=== PATIENT | female | born 1950 | race Caucasian/White ===

== ENCOUNTER 2022-03-19 08:30 | Emergency (ER) | payer OTHER ==
--- OUTSIDE RECORDS SUMMARY | 2022-03-19 08:35 | XMS REPORT | Continuity of Care Document ---
:1950 Author Organization [facility] t Address [address] [place] [address] Care Team Providers Name Role Phone Sirena CUADRA Primary Care Physician Unavailable GC_MADINAC_Black_D Attending Clinician Unavailable Brannon BRUNO Attending Clinician Unavailable Vijay BRUNO Attending Clinician Unavailable Ruben COLLINS Attending Clinician BETH DELGADILLO Attending Clinician Unavailable Gloria ROBLERO Attending Clinician GLORIA Attending Clinician Unavailable Eleno Baca MD Attending Clinician 3 Attending Clinician Unavailable Field-Hrt Attending Clinician Unavailable GC_MADINAC_Black_D Admitting Clinician Unavailable Payers Payer Name Policy Type Policy Number Effective Date Expiration Date Claudette paulina AETNA (MEDICARE [id number] 2021 REPLACEMENT PPO) 00:00:00 MEDICARE PLAN PPO - [id number] AETNA AETNA MEDICARE HMO [id number] 2021 POS PPO 00:00:00 Problems Condition Condition Condition Status Onset Resolution Last Treating Co mments Source Name Details Category Date Date Treatment Clinician Date 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 3-20 College age-relate age-relate 00:00: of d d 00 Medicin cataract, cataract, e both eyes both eyes 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 3-20 College age-relate age-relate 00:00: of d d 00 Medicin cataract, cataract, e both eyes both eyes At high At high Disease Active [facility] risk for risk for 3-20 Colleg e open angle open angle 00:00: of glaucoma glaucoma 00 Medici n of both of both e eyes eyes 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 3-20 Co llege , left , left 00:00: of 00 Medicin e 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 1-06 Co llege 00:00: of 00 Medicin e Myopia Myopia Disease Active [facility] with with 06 College astigmatis astigmatis 00:00: of m and m and 00 Medicin presbyopia presbyopia e 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[facility] incipient incipient 06-03 [facility] cataract cataract 00:00: of of both of both 00 Medicin eyes eyes e Glaucoma Glaucoma Disease Active [facility] r suspect suspect 9-11 College 00:00: of 00 Medicin e Glaucoma Glaucoma Disease Active [facility] r suspect suspect 9-11 College 00:00: of 00 Medicin e Macular Macular Disease Active [facility] puckering puckering 7-29 Sarah ege of retina of retina 00:00: of 00 Medicin e Glaucoma Glaucoma Disease Active [facility] r suspect of suspect of 7-29 Co llege both eyes both eyes 00:00: of 00 Medicin e Vitreous Vitreous Disease Active [facility] r degenerati degenerati 7-29 Co llege on on 00:00: of 00 Medicin e Hypothyroi Hypothyroi Disease Active [facility] dism dism 7-29 College 00:00: of 00 Medicin e Meningioma Meningioma Disease Active Overview : [facility] Colleg e planum of sphenoida Medicin le e meningiom a Meningioma Meningioma Disease Active Overview : [facility] left Colleg e planum of sphenoida Medicin le e meningiom a Left Left Diagnosis Active Common sciatic sciatic Spirit nerve pain nerve pain - [facility] Pain in Pain in Diagnosis Active Commo n joint of joint of Spirit left knee left knee - I [facility] Strain of Strain of Diagnosis Active C ommon other other Spirit muscle(s) muscle(s) - [facility] I and and St tendon(s) tendon(s) Luke s at lower at lower Medica l leg level, leg level, Ce nter left leg, left leg, initial initial encounter encounter Allergies, Adverse Reactions, Alerts Allergy Allergy Status Severity Reaction(s) Onset Inactive Treating Comm ents Source Name Type Date Date Clinician CODEINE Allergy Active N\T\V [facility] [place] Codeine Propensi Active Nausea And [facility] j[facility] ty to Vomiting 04-25 [facility] adverse 00:00: of reaction 00 Medicin s to e drug Social History Social Habit Start Date Stop Date Quantity Comments Source Exposure to Not sure [facility] Colleg SARS-CoV-2 of Medicine (event) Sex Assigned At [facility] [employer] of [employer] Alcohol intake 2019-11-08 2019-11-08 Current [facility] Col lege 00:00:00 00:00:00 non-drinker of of Medicin e alcohol (finding) Tobacco use and 2019-11-08 2019-11-08 Never used [facility] [employer] l[employer] exposure 00:00:00 00:00:00 of Medicine Smoking Status Start Date Stop Date Source Never smoker [facility] o f Medicine Medications Ordered Filled Start Stop Current Ordering Indication Dosage Frequency Signature Comments Components Source Medication Medication Date Date Medication? Clinician (SIG) Name Name METOPROLOL 2019-09 Yes Take by [facility] SUCCINATE 0-02 mouth. [facility] OR 18:21: of 41 Medicin e fluticasone 2019-09 Yes 1{spray 1 [place] by [facility] (FLONASE) 0-02 } Each [facility] 50 MCG/ACT 18:21: Nostril of nasal spray 41 route Medicin daily. e estradiol 2019-09 Yes estradiol [facility] (ESTRACE) 1 0-02 1 mg [facility] MG tablet 18:21: tablet of 41 TAKE 1 Medicin TABLET BY e MOUTH EVERY DAY conjugated 2019-09 Yes Premarin [facility] estrogens 0-02 0.625 [facility] (PREMARIN) 18:20: mg/gram of vaginal 41 vaginal Medicin cream cream e INSERT VAGINALLY 0.5 GRAM pv twice a week nystatin 2019-09 Yes nystatin [facility] (MYCOSTATIN 0-02 100,000 Colle ge ) cream 18:20: unit/gram of 41 topical Medicin cream e APPLY TO THE AFFECTED AREA(S) BY TOPICAL ROUTE 2 TIMES PER DAY liothyronin 2019-09 Yes liothyroni [facility] (CYTOMEL) 0-02 ne 5 mcg Sarah ege 5 MCG 18:19: tablet of tablet 56 TAKE 1 Medicin TABLET BY e MOUTH EVERY DAY liothyronin 2019-09 2020- No [id number] 10ug Take 10 [facility] (CYTOMEL) 0-02 10-02 mcg by Colle ge 25 MCG 18:19: 00:00 mouth of tablet 25 :00 daily. Medicin e ipratropium 2019-09 Yes ipratropiu [facility] (ATROVENT) 0-02 m bromide Sarah ege 0.06 % 18:19: 42 mcg of nasal spray 24 (0.06 %) Medi lanre nasal e spray triamcinolo Yes [facility] ne 06-26 [facility] (KENALOG) 00:00: of 0.1 % cream 00 Medicin e pantoprazol Yes TAKE 1 [facility] e 8-25 TABLET BY [facility] (PROTONIX) 00:00: MOUTH of 40 MG 00 TWICE A Medicin tablet DAY e fluticasone Yes 1{spray 1 [place] by [facility] (FLONASE) 2-11 } Each [facility] 50 MCG/ACT 19:41: Nostril of nasal spray 55 route Medicin daily. e liothyronin Yes [id number] 10ug Take 10 [facility] (CYTOMEL) 2-11 mcg by Colleg e 25 MCG 19:41: mouth of tablet 55 daily. Medicin e METOPROLOL Yes Take by Frankewing james SUCCINATE 2-11 mouth. [facility] OR 19:41: of 55 Medicin e liothyronin Yes [id number] 10ug Take 10 [facility] (CYTOMEL) 9-25 mcg by Colleg e 25 MCG 15:31: mouth of tablet 51 daily. Medicin e METOPROLOL Yes Take by Frankewing james SUCCINATE 9-25 mouth. [facility] OR 15:31: of 51 Medicin e fluticasone 2018- Yes 1{spray 1 [place] by [facility] (FLONASE) 9-25 } Each [facility] 50 MCG/ACT 15:31: Nostril of nasal spray 51 route Medicin daily. e liothyronin Yes [id number] 10ug Take 10 [facility] (CYTOMEL) 9-25 mcg by Colleg e 25 MCG 15:31: mouth of tablet 51 daily. Medicin e METOPROLOL Yes Take by [facility]kewing james SUCCINATE 06-22 mouth. College ER OR 15:31: of 51 Medicin e fluticasone Yes 1{spray 1 [place] by [facility] (FLONASE) 06-22 } Each College 50 MCG/ACT 15:31: Nostril of nasal spray 51 route Medicin daily. e estradiol Yes [facility] (ESTRACE) 1 05-29 College MG tablet 00:00: of 00 Medicin e estradiol 0 Yes [facility] (ESTRACE) 1 05-29 College MG tablet 00:00: of 00 Medicin e estradiol Yes [facility] (ESTRACE) 1 05-29 College MG tablet 00:00: of 00 Medicin e estradiol 2016-0 2020- No [facility] (ESTRACE) 1 05-29-02 College MG tablet 00:00: 00:00 of 00 :00 Medicin e atorvastati 2015-0 Yes Reported [facility] (LIPITOR) 6-10 on College 10 MG 00:00: 10/03/2016 of tablet 00 Medicin e atorvastati 2016-0 Yes Reported [facility] (LIPITOR) 6-10 on College 10 MG 00:00: 10/03/2016 of tablet 00 Medicin e atorvastati 2016-0 Yes Reported [facility] (LIPITOR) 6-10 on College 10 MG 00:00: 10/03/2016 of tablet 00 Medicin e atorvastati 2016-0 Yes Reported [facility] (LIPITOR) 6-10 on College 10 MG 00:00: 10/03/2016 of tablet 00 Medicin e levothyroxi 2015-0 Yes [facility] 5-03 [facility] (SYNTHROID) 00:00: of 88 MCG 00 Medicin tablet e levothyroxi 2015-0 Yes [facility] 5- [facility] (SYNTHROID) 00:00: of 88 MCG 00 Medicin tablet e levothyroxi 2015-0 Yes [facility] 5-03 [facility] (SYNTHROID) 00:00: of 88 MCG 00 Medicin tablet e levothyroxi 0 Yes [facility] 5-03 [facility] (SYNTHROID) 00:00: of 88 MCG 00 Medicin tablet e Immunizations Ordered Immunization Filled Immunization Date Status Commen ts Source Name Name Influenza (whole) 2016-06-12 Completed [facility] 00:00:00 of Medicine Influenza (whole) 2016-06-12 Completed [facility] 00:00:00 of Medicine Influenza (whole) 2016-06-12 Completed [facility] 00:00:00 of Medicine Influenza (whole) 2016-06-12 Completed [facility] 00:00:00 of Medicine Influenza (whole) 2013-06-12 Completed [facility] 00:00:00 of Medicine Influenza (whole) 2013-06-12 Completed [facility] 00:00:00 of Medicine Influenza (whole) 2013-06-12 Completed [facility] 00:00:00 of Medicine Influenza (whole) 2013-06-12 Completed [facility] 00:00:00 of Medicine Vital Signs Vital Name Observation Time Observation Value Comments Source Systolic blood 2019-11-08 19:40:00 133 mm[Hg] [facility] Diastolic blood 2019-11-08 19:40:00 80 mm[Hg] [facility] Heart rate 2019-11-08 19:40:00 70 /min [facility] Body temperature 2019-11-08 19:40:00 36.5 Yun [facility] Respiratory rate 2019-11-08 19:40:00 16 /min [facility] Body height 2019-11-08 19:40:00 168.9 cm [facility] Body weight 2019-11-08 19:40:00 85.73 kg [facility] BMI 2019-11-08 19:40:00 30.05 kg/m2 [facility] Oxygen saturation in 2019-11-08 19:40:00 95 /min [facility] Arterial blood by [facility] Pulse oximetry Procedures Procedure Date / Time Performed Performing Clinician [facility] OCT, OPTIC NERVE - OU 2019-06-22 16:25:[address] [facility] BOTH EYES [facility] MCCLELLAND VISUAL FIELD 2019-06-22 15:24:[address] [facility] OU - BOTH EYES Medicine Plan of Care Planned Activity Planned Date Details Comments Source Future Scheduled Test TETANUS SHOT (ADULT) [facility] [code = TETANUS SHOT Medicin e (ADULT)] Future Scheduled Test BMI FOLLOW UP PLAN [facility] [code = BMI FOLLOW UP Medici ne PLAN] Future Scheduled Test HEPATITIS C SCREENING [facility] [code = HEPATITIS C Medicine SCREENING] Future Scheduled Test ZOSTER VACCINE (1 of 2) [facility] [code = ZOSTER VACCINE Medic ine (1 of 2)] Future Scheduled Test OSTEOPOROSIS SCREENING [facility] [code = OSTEOPOROSIS Medicin e SCREENING] Future Scheduled Test PNEUMOVAX >=65 (PPSV23) [facility] [code = PNEUMOVAX >=65 Medic ine (PPSV23)] Future Scheduled Test MEDICARE AWV (Initial) [facility] [code = MEDICARE AWV Medicin e (Initial)] Future Scheduled Test MAMMOGRAM ANNUAL [code [facility] = MAMMOGRAM ANNUAL] Medicine Future Scheduled Test FLU VACCINE > 6 MONTHS [facility] [code = FLU VACCINE > 6 Medi cine MONTHS] Future Scheduled Test FALL SCREEN [code = [facility] FALL SCREEN] Medicine Future Scheduled Test COLON CANCER SCREENING: [facility] COLONOSCOPY [code = Medicine COLON CANCER SCREENING: COLONOSCOPY] Future Scheduled Test MEDICARE AWV [code = [employer] MEDICARE AWV] Medicine Future Scheduled Test TETANUS SHOT (ADULT) [facility] [code = TETANUS SHOT Medicin e (ADULT)] Future Scheduled Test BMI FOLLOW UP PLAN [facility] [code = BMI FOLLOW UP Medici ne PLAN] Future Scheduled Test HEPATITIS C SCREENING [facility] [code = HEPATITIS C Medicine SCREENING] Future Scheduled Test FALL SCREEN [code = [facility] FALL SCREEN] Medicine Future Scheduled Test PNEUMOVAX >=65 (PPSV23) [facility] [code = PNEUMOVAX >=65 Medic ine (PPSV23)] Future Scheduled Test MAMMOGRAM ANNUAL [code [facility] = MAMMOGRAM ANNUAL] Medicine Future Scheduled Test FLU VACCINE > 6 MONTHS [facility] [code = FLU VACCINE > 6 Medi cine MONTHS] Future Scheduled Test COLON CANCER SCREENING: [facility] COLONOSCOPY [code = Medicine COLON CANCER SCREENING: COLONOSCOPY] Future Scheduled Test MEDICARE AWV [code = [employer] MEDICARE AWV] Medicine Future Scheduled Test TETANUS SHOT (ADULT) [facility] [code = TETANUS SHOT Medicin e (ADULT)] Future Scheduled Test BMI FOLLOW UP PLAN [facility] [code = BMI FOLLOW UP Medici ne PLAN] Future Scheduled Test HEPATITIS C SCREENING [facility] [code = HEPATITIS C Medicine SCREENING] Future Scheduled Test FALL SCREEN [code = [facility] FALL SCREEN] Medicine Future Scheduled Test PNEUMOVAX >=65 (PPSV23) [facility] [code = PNEUMOVAX >=65 Medic ine (PPSV23)] Future Scheduled Test MAMMOGRAM ANNUAL [code [facility] = MAMMOGRAM ANNUAL] Medicine Future Scheduled Test FLU VACCINE > 6 MONTHS [facility] [code = FLU VACCINE > 6 Medi cine MONTHS] Future Scheduled Test COLON CANCER SCREENING: [facility] COLONOSCOPY [code = Medicine COLON CANCER SCREENING: COLONOSCOPY] Future Scheduled Test TETANUS SHOT (ADULT) [facility] [code = TETANUS SHOT Medicin e (ADULT)] Future Scheduled Test BMI FOLLOW UP PLAN [facility] [code = BMI FOLLOW UP Medici ne PLAN] Future Scheduled Test HEPATITIS C SCREENING [facility] [code = HEPATITIS C Medicine SCREENING] Future Scheduled Test FALL SCREEN [code = [facility] FALL SCREEN] Medicine Future Scheduled Test OSTEOPOROSIS SCREENING [facility] [code = OSTEOPOROSIS Medicin e SCREENING] Future Scheduled Test PNEUMOVAX >=65 (PPSV23) [facility] [code = PNEUMOVAX >=65 Medic ine (PPSV23)] Future Scheduled Test PREVNAR >= 65 (PCV13) [facility] [code = PREVNAR >= 65 Medici ne (PCV13)] Future Scheduled Test MEDICARE AWV (Initial) [facility] [code = MEDICARE AWV Medicin e (Initial)] Future Scheduled Test MAMMOGRAM ANNUAL [code [facility] = MAMMOGRAM ANNUAL] Medicine Future Scheduled Test FLU VACCINE > 6 MONTHS [facility] [code = FLU VACCINE > 6 Medi cine MONTHS] Future Scheduled Test COLON CANCER SCREENING: [facility] COLONOSCOPY [code = Medicine COLON CANCER SCREENING: COLONOSCOPY] Encounters Start End Encounter Admission Attending Care Care Encounter Source Date/Time Date/Time Type Type Clinicians Facility Department ID 2021-12-26 2021-12-26 Outpatient GC_[facility]AOM[facility]_ PRIV PRIV [id number] [facility] 01:09:00 01:09:00 Black_D [id number] Medica l 2021-12-03 2021-12-03 Outpatient GC_SWHAOMC_ PRIV PRIV [id number] [facility] 02:51:00 02:51:00 Black_D [id number] Medica l 2021-11-20 2021-11-20 Outpatient CHANEL BRUNO [facility] [id number] [facility] 09:37:34 09:39:50 MARIE sadler of Medicin e 2021-11-12 2021-11-12 Outpatient MALI LUDWIG [facility] [id number] [facility] 12:22:05 23:59:00 [facility] 2021-11-05 2021-11-05 Outpatient GC_SWHAOMC_ PRIV PRIV [id number] [facility] 02:43:00 02:43:00 Black_D [id number] Medica l 2021-10-21 2021-10-21 Outpatient GC_SWHAOMC_ PRIV PRIV [id number] [facility] 03:59:00 03:59:00 Black_D [id number] Medica l 2021-10-18 2021-10-18 Outpatient GC_[facility]WHAOMC_ PRIV PRIV 505 [id number] [facility] 04:10:00 04:10:00 Black_D [id number] Medica l 2021-10-15 2021-10-15 Outpatient GC_SWHAOMC_ PRIV PRIV 505 [id number] [facility] 06:35:00 06:35:00 Black_D [id number] Medica l 2021-08-27 2021-08-27 Outpatient GC_SWHAOMC_ PRIV PRIV 505 [id number] [facility] 12:16:00 12:16:00 Black_D [id number] Medica l 2020-11-28 2020-11-28 Outpatient EL SLEAndrew [facility] [id number] [facility] 00:00:00 00:00:00 2020-11-21 2020-11-21 Outpatient MALI LUDWIG [facility] [id number] [facility] 00:00:00 00:00:00 [facility] 2020-06-29 2020-06-29 Office CHANEL Miranda [id number] [facility] 12:44:56 13:50:50 Visit Natalie AMBULATOR [id number] College Y 0.2.7.2.686 of [id number] Medi lanre 300 e 2020-05-16 2020-05-16 Outpatient ALLA SLEAndrew [facility] [id number] [facility] 00:00:00 00:00:00 2020-05-15 2020-05-15 Outpatient SLEH [facility] [id number] [facility] 00:00:00 00:00:00 [id number] 2020-05-15 2020-05-15 Outpatient ALLA DELGADILLO, [facility] [id number] [facility] 00:00:00 00:00:00 DUANE 2020-01-27 2020-01-27 Outpatient SLEH [facility] [id number] [facility] 00:00:00 00:00:00 [id number] 2019-12-28 2019-12-28 Outpatient SLEH [facility] [id number] [facility] 00:00:00 00:00:00 [id number] 2019-11-30 2019-11-30 Outpatient SLEH [facility] [id number] [facility] 00:00:00 00:00:00 [id number] 2019-11-29 2019-11-29 Outpatient SLEH [facility] [id number] [facility] 15:56:54 15:56:54 [id number] 2019-11-14 2019-11-14 Outpatient SLEH [facility] [id number] [facility] 15:55:30 15:55:30 [id number] 2019-11-08 2019-11-08 Office Brianjaneen [facility] [id number] [facility] 12:38:50 12:53:50 Visit Taurus AMBULATOR [id number] College Y [id number] of [id number] Medi lanre 300 e 2019-06-24 2019-06-24 Office CHANEL Miranda [id number] [facility] 12:26:39 14:34:14 Visit Natalie AMBULATOR [id number] College Y [id number] of [id number] Medi lanre 300 e 2019-06-22 2019-06-22 Office Andrew Baca [facility] [id number] [facility] 10:00:42 11:46:08 Visit Mathieu Cross AMBULATOR [id number] College Field[employer], Visual Y 0.2.7.2.686 of [id number] Medi lanre 300 e 2018-12-17 2018-12-17 Out[facility] [id number] Common 08:30:00 08:30:00 [facility] Results Test Description Test Time Test Comments Results Result [facility] e Comments MR, BRAIN, WITH 2021-11-12 Unlisted Reason 15:21:00 for Exam - Click Yes and [facility] Enter Reason [facility] Below->Yes CENTERName: [place], Unlisted Reason ALEXANDER ALFORD for : 1950 Exam->meningiom Sex: a, cerebral F FINAL REPORT MR, BRAIN, WITH \T\ WITHOUT CONTRAST INDICATION: Unlisted Reason for Exammeningioma, cerebral Technique: Multiplanar, multisequence MRI images of the brain were obtained before and after demonstration of intravenous contrast. COMPARISON: 11/21/2020 MRI FINDINGS:Postoperative changes from left frontotemporal craniotomy. Gliosis/and encephalomalacia is seen in the left anterior temporal lobe. Small focal areas of gliosis in the left anterior frontal lobe and left orbitofrontal gyri. Mild enhancement is seen along the left cavernous sinus and medial temporal lobe (series 901 image 10) No restricted diffusion to suggest recent ischemic insult. No abnormal susceptibility. Scattered T2/FLAIR hyperintense foci within the periventricular and subcortical white matter are nonspecific, however, statistically represent chronic microvascular ischemic changes. No hydrocephalus. Orbits are within normal limits. No obstructive paranasal sinus disease. Additional findings: None. IMPRESSION: 1.No significant change.2.Subtle enhancement along the left cavernous sinus/medial temporal lobe, similar on multiple prior exams given differences in technique, representing residual tumor and/or treatment-related changes. Signed: Shane Bunch MDReport Verified Date/Time: 11/12/2021 15:21:08 Reading Location: [facility] C013V Neuro Reading Room , BRAIN, WITH 2020-11-21 Unlisted Reason 12:37:00 for Exam - Click Yes and [facility] Enter Reason [facility] Below->Yes CENTERName: [place], Unlisted Reason ALEXANDER HEADVINCE for : 1950 Exam->MENINGIOM Sex: A F FINAL REPORT MR, BRAIN, WITH \T\ WITHOUT CONTRAST INDICATION: Unlisted Reason for Exam TECHNIQUE: Multiplanar, multisequence MR imaging of the brain was obtained before and after uneventful administration of gadolinium contrast. COMPARISON: May 15, 2020 FINDINGS:Direct comparison is limited by lack of thin section imaging. When comparing similar postcontrast slices, there is slightly decreased volume of the left cavernous sinus meningioma with encasement of the cavernous internal carotid artery. Although encasement is stable, caliber change has not occurred. The previously described extension into Meckel's cave is not well characterized in the current examination. Adjacent FLAIR hyperintensity in the left mesial anterior temporal lobe is stable. FLAIR hyperintensity in the left frontal lobe is also stable. Osseous surgical changes are stable. No new dural thickening or dural based mass is identified. Involutional changes including mild volume loss and scattered white matter disease are unchanged from the prior examination. There is no diffusion restriction or new susceptibility artifact. Midline is normally positioned. There is no ventriculomegaly. IMPRESSION: Within the limits of the current examination, slight decreased volume of the left cavernous sinus meningioma when compared to May 15, 2020. Signed: KlingJR burt Robert MDReport Verified Date/Time: 11/21/2020 12:37:14 Reading Location: [address] Reading Room , BRAIN, WITH 2020-05-15 w and wo FINAL REPORT PATIENT 13:21:00 contrast in ID: [id number] MR, treatment BRAIN, WITH \T\ position WITHOUT CONTRAST Unlisted Reason INDICATION: Neoplasm: for Exam - head TECHNIQUE: Click Yes and Multiplanar, Enter Reason multisequence MR Below->No imaging of the brain was obtained before and after uneventful administration of gadolinium contrast. COMPARISON: January 30, 2020 FINDINGS:The left cavernous sinus meningioma again surrounds the internal carotid artery but without identifiable narrowing of the arterial caliber. There is extension to but sparing of Meckel's cave. Involvement of the clivus and left tentorial leaflet is grossly unchanged (comparing image 43 CyberKnife protocol of the current study to the CyberKnife protocol image 41 of the prior exam). Surgical changes again identified over the left frontal convexity. There is mild dural thickening/granulation tissue subjacent to the craniotomy site, and stable over multiple prior exams. No abnormal extra-axial fluid is present. The brain parenchyma demonstrates mild scattered T2 hyperintensity suggesting microvascular change given patient's demographics. Over the left frontal lobe is a small degree of peripheral FLAIR hyperintensity which has not progressed since the prior examination. Small foci of hemosiderin staining are also present. There is no abnormal postcontrast enhancement at the surgical site. No midline shift or hydrocephalus is present. There is no evidence of recent infarction. IMPRESSION: No significant interval change in left cavernous sinus meningioma. Stable intracranial appearance. Note: Treatment images were obtained in a 1.0 Isaura open magnet; as such small lesions (4 mm and smaller) may be missed. Signed: JR Reeder Robert MDReport Verified Date/Time: 05/15/2020 13:21:39 Reading Location: [facility] C013V Neuro Reading Room , BRAIN, WITH 2019-11-30 In treatment FINAL REPORT PATIENT 15:20:00 position ID: [id number] MR, BRAIN, WITH \T\ WITHOUT CONTRAST INDICATION: Neoplasm: head TECHNIQUE: Multiplanar, multisequence MR imaging of the brain was obtained before and after uneventful administration of gadolinium contrast. 10 section postcontrast imaging per cyanotic protocol. COMPARISON: November 08, 2019 FINDINGS:Redemonstrati on of left temporal, cavernous sinus and tentorial meningioma on the left. There is circumferential involvement of the cavernous internal carotid artery on the left without discernible loss of caliber. Surgical changes in the left temporal region are stable. No additional dural based lesion is identified. The brain parenchyma demonstrates unchanged appearance when compared to the prior examination. Postsurgical distortion in the anterior third ventricle is stable. There is no hydrocephalus. IMPRESSION: Stable left cavernous sinus meningioma with extension to the tentorium. Note: CyberKnife protocol was performed on 1.0 Isaura open magnet which may not identify small (4 mm and smaller) lesions. Signed: JR Reeder Robert MDReport Verified Date/Time: 11/30/2019 15:20:33 Reading Location: [address] Neuro Reading Room -CREATININE 2019-11-30 10:57:00 Test Item Value Reference Range Interpretation Comme nts POC-CREATININE (ALBAAKER) 0.7 mg/dL 0.6-1.3 : TE STED AT [facility]- [address] (test code = 1859) [facility] [id number]: Clinic Nurse/Techni ana cristina ID = [id number] for JESSICA MORA MELVIN POC-EGFR (BEAKER) (test 82 mL/min/1.73M2 code = 1860) MR, BRAIN, [id number] 15:22:00FINAL REPORT MRI Brain with and without contrast Clinical History: MENINGIOMATechnique: MRI of the brain utilizing axial T1, T2, FLAIR, GRE, DWI, sagittal T1; and postgadolinium axial, sagittal, and coronal T1-weighted images. Comparisons: MRI 11/22/2018, 10/09/2017, and 09/30/2016Findings: A left orbital frontal craniotomy is again seen. Enhancing neoplasm involving the left cavernous sinus encasing the left internal carotid artery and extending into the sella is similar appearing. The dural tail of enhancing neoplasm extending along the left tentorial incisura is also unchanged. Left anterior inferior frontal and left anterior temporal encephalomalacia is unchanged. There is no evidence of acute infarct or hemorrhage. Generalized parenchymal volume loss is again seen without hydrocephalus or midline shift. Mild chronic white matter disease is unchanged. The major intracranial flow-voids appear patent. IMPRESSION: Since the prior three exams, no significant interval change in left cavernous sinus centered meningioma. Signed: Cosme Hobbs MDReport Verified Date/Time: 11/08/2019 15:22:41 Reading Location: [facility] C013V Neuro Reading Room [id number] 11:32:00 Test Item Value Reference Range Interpretation Comments POC-CREATININE 0.7 mg/dL 0.6-1.3 TESTED AT [facility] ([facility]) (test [address] [facility] code = 1859) [facility] [address] POC-EGFR 82 mL/min/1.73M2 ([employer]) (test code = 1860) [facility] - OU - BOTH [id number] 16:35:03VF Interpretation05/2019 OD OS Reliability Good Good Defect Central [id number] MD: -3.04 Central d [id number] MD: -5.00 Deterioration Dropping MD and central depression could be due to [id number] MD: +[phone] MD: -1.635 MD: -1.409/2015 MD: +[phone] MD: +0.85 Dropping MD and central depression could be due to [id number] MD: -[phone] MD: -8.685/2015 MD: -14.91S/P mengioma resection MD: -4.775018 MD: -2.88[facility] N[facility] - [facility]U - BOTH [id number] 16:34:53OCT Glaucoma Interpretation05/2019 OD OS Quality Good Good Interpretation borderline G2019 G= 80 ThinTI, borderline, T, TS, [id number] G= 62 Change 01/2016 /2016 G= 729404 G= 79 01/2016 S/P mengioma resection G= 231163 G= 63[facility] campusMR, EXTREMITY, LOWER, JOINT, WITHOUT CONTRAST, [id number] 12:47:00 FINAL REPORT MRI of the left knee History: LEFT KNEE PAIN Comparison: No priors Technique: Multiplanar multisequence MRI of the left knee was performed without contrast. Findings: Extensor mechanism: The patellar and quadriceps tendons are intact. No retinacular abnormalities. Ligaments: The anterior and posterior cruciate ligaments are intact. The medial and lateral collateral ligament complexes are intact; there is mild edema around the MCL, suggesting low-grade sprain. Menisci: There is a posterior root tear of the medial meniscus, with slight extrusion of the meniscal body. Bones/Cartilage: There is grade III chondromalacia of the patella, and grade II/grade III chondromalacia of the weightbearing medial compartment. No high- grade cartilage loss is identified in the lateral compartment. Small osteophytes are present. There is mild edema in the posterior tibial plateau at the attachment site of the posterior horn medial meniscus. Fluid: Large joint effusion with mild synovitis. There is nonspecific periarticular soft tissue edema. Tiny popliteal cyst. Muscles: Very mild patchy proximal calf muscle edema may reflect draining. Normal muscle bulk. Impression: 1. Posterior root tear of the medial meniscus. Mild sprain of MCL. 2. Patellofemoral, and medial compartment chondromalacia. 3. Large joint effusion with mild synovitis. Signed: Serge Stanton MDReport Verified Date/Time: 12/22/2018 12:47:54 Reading Location: [facility] [address] [facility] Consult Reading Room MR, BRAIN, [id number] 10:29:00FINAL REPORT MRI Brain with and without contrast Clinical History: MENINGIOMATechnique: MRI of the brain utilizing axial T1, T2, FLAIR, GRE, DWI, sagittal T1; and postgadoliniumaxial, sagittal, and coronal T1-weighted images. Comparisons: MRI 10/09/2017, 09/30/2016 Findings: Leftorbital frontal craniotomy changes are again seen with left anterior inferior frontal and anterior temporal encephalomalacia. An adjacent extra-axial fluid collection with slightly irregular extra-axial enhancement grossly unchanged. Residual enhancing neoplasm in the left cavernous sinus is grossly unchanged, encasing the cavernous carotid artery and extending into the left sella. Rightward deviation of the pituitary gland and infundibulum is unchanged. A component of neoplasm extending into the left middle cranial fossa and along the free margin of the left tentorium is also unchanged. There is no evidence for acute infarct or hemorrhage. There is generalized sulcal prominence without hydrocephalus or midline shift. The major intracranial flow-voids appear patent. IMPRESSION: Since 10/09/2017, residual neoplasm centered in the left cavernous sinus is unchanged. Signed: Cosme Hobbs MDReport Verified Date/Time: 11/22/2018 10:29:05 Reading Location: [facility] C013V Neuro Reading Room [id number] 09:03:00 Test Item Value Reference Range Interpretation Comments POC-CREATININE 0.7 mg/dL 0.6-1.3 TESTED AT [facility] ([facility]) (test [address] [facility] code = 1859) [facility] [address] 0 POC-EGFR 83 mL/min/1.73M2 ([employer]) (test code = 1860) MR, BRAIN, [id number] 15:40:00FINAL REPORT MRI Brain with and without contrast INDICATION: Meningioma TECHNIQUE: Multiplanar, multisequence MR imaging of the brain was performed, utilizing the following imaging sequences: Axial T1, T2, FLAIR, DWI, GRE; sagittal T1; postcontrast axial, sagittal, and coronal T1. COMPARISON: MRI brain 09/30/2016, 03/05/2016 FINDINGS:Left frontal and pterional craniotomy changes are again noted with a small left frontal extra axial collection and decreased left frontal and anterior cranial fossa floor dural enhancement. Dural enhancement along the left middle cranial fossa floor and along the sphenoid triangle is stable. Residual neoplasm infiltrating the left cavernous sinus and extending posteriorly along the anterior free edge of the left tentorium is stable in size. There is compression of the left side of the pituitary gland with stable pituitary stalk deviation. Corticaland subcortical signal changes in the anterior inferior left frontal lobe suggest encephalomalacia and gliosis, with similar changes in the anterior left temporal lobe. There is no acute infarct, parenchymal hematoma, new extra axial collection, or hydrocephalus. 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 Mild chronic white matter changes suggest microvascular ischemia. The major vascular flow voids are maintained. There is generalizedparenchymal volume loss. The orbits and craniocervical junction are unremarkable. There is minimal chronic sinus mucosal thickening and trace bilateral mastoid air cell fluid. IMPRESSION: Since 09/30/2016, stable left frontal small extra-axial collection and decreased dural enhancement with suspected left frontal encephalomalacia. Residual neoplasm centered at the left cavernous sinus is stable in volume. Advise continued imaging surveillance. Signed: Kia Jean MDReport Verified Date/Time:10/09/2017 15:40:28 Reading Location: [address] Neuro Reading Room -[id number] 14:12:00 Test Item Value Reference Range Interpretation Comments POC-CREATININE 0.8 mg/dL 0.6-1.3 TESTED AT [facility] ([facility]) (test [address] [facility] code = 1859) [facility] 7703 0 POC-EGFR 71 mL/min/1.73M2 ([employer] MobileAKER) (test code = 1860)
[2022-03-19 09:39] LABS: Absolute Lymphocytes (CBC) 2.5 K/uL (0.7-4.9); Hematocrit 35.2 % (36.0-45.0); Lymphocytes % 35.3 % (15.3-44.8); MPV 7.5 fL (7.6-11.3); RBC Red Blood Cell Count 3.83 M/uL (3.86-4.86)
[2022-03-19 09:55] LABS: Potassium 4.2 mmol/L (3.5-5.1)
--- NOTE | 2022-03-19 10:20 | RAD REPORT ---
EXAM DESCRIPTION: Keith Single View03/19/2022 9:45 am CLINICAL HISTORY: Cough COMPARISON: none FINDINGS: The lungs appear clear of acute infiltrate. The heart is normal size IMPRESSION: No acute abnormalities displayed
[2022-03-19] MEDS ORDERED: BEBTELOVIMAB 175 MG/2 ML VIAL IV ONE (10:43)
--- NOTE | 2022-03-19 11:47 | ER ---
Nurse's Notes [facility] Name: Isela Perez Age: 71 yrs Sex: Female : 1950 Arrival Date: 03/19/2022 Time: 08:36 Bed 7 Private MD: Juan C Correa C Diagnosis: SARS-associated coronavirus as the cause of diseases classified elsewhere Presentation: 03/19 08:52 Chief complaint: Patient states: COVID + since Thursday , has had coughing, sneezing, iw aching, this morning she felt SOB and had some congestion in her chest, called Dr. Correa, was told to come to ER. Coronavirus screen: Client reports previous positive COVID test result. Ebola Screen: Patient negative for fever greater than or equal to 101.5 degrees Fahrenheit, and additional compatible Ebola Virus Disease symptoms Patient denies exposure to infectious person. Patient denies travel to an Ebola-affected area in the 21 days before illness onset. No symptoms or risks identified at this time. Initial Sepsis Screen: Does the patient meet any 2 criteria? No. Patient's initial sepsis screen is negative. Does the patient have a suspected source of infection? No. Patient's initial sepsis screen is negative. Risk Assessment: Do you want to hurt yourself or someone else? Patient reports no desire to harm self or others. Onset of symptoms was March 16, 2022. 08:52 Method Of Arrival: Ambulatory iw 08:52 Acuity: PAUL 3 iw Historical: - Allergies: 08:54 Codeine; iw - PMHx: 08:54 Hypertensive disorder; iw - PSHx: 08:54 Tonsillectomy; hysterectomy; iw 08:55 brain surgery; iw Screenin:29 Abuse screen: Denies threats or abuse. Nutritional screening: No deficits noted. aa5 Tuberculosis screening: No symptoms or risk factors identified. Fall Risk None identified. Assessment: 09:10 General: Appears comfortable, Behavior is calm, cooperative. Pain: Denies pain. Neuro: aa5 Level of Consciousness is awake, alert, obeys commands, Oriented to person, place, time, situation. Cardiovascular: Heart tones S1 S2 present Rhythm is regular. Respiratory: Reports chest congestion and cough that has improved. Airway is patent Respiratory effort is even, unlabored, Respiratory pattern is regular, symmetrical, Breath sounds are clear bilaterally. GI: Abdomen is round non-distended, Patient currently denies nausea, vomiting. : No signs and/or symptoms were reported regarding the genitourinary system. EENT: No signs and/or symptoms were reported regarding the EENT system. Derm: Skin is pink, warm \T\ dry. Musculoskeletal: Range of motion: intact in all extremities. 10:30 Reassessment: Patient is alert, oriented x 3, equal unlabored respirations, skin aa5 warm/dry/pink. PA at bedside . 11:45 Reassessment: Patient is alert, oriented x 3, equal unlabored respirations, skin aa5 warm/dry/pink. Pt sitting up in bed, no adverse reaction noted or reported. . 12:38 Reassessment: Patient is alert, oriented x 3, equal unlabored respirations, skin aa5 warm/dry/pink. Vital Signs: 08:52 BP 157 / 95; Pulse 65; Resp 20 S; Temp 98.2; Pulse Ox 100% on R/A; iw 10:30 BP 121 / 88; Pulse 56; Resp 16 S; Pulse Ox 96% on R/A; aa5 11:50 BP 144 / 60; Pulse 56; Resp 14 S; Temp 98.0(TE); Pulse Ox 99% on R/A; aa5 12:30 BP 150 / 62; Pulse 58; Resp 18 S; Pulse Ox 99% on R/A; aa5 ED Course: 08:36 Patient arrived in ED. mr 08:36 Juan C Correa MD is Private Physician. mr 08:36 [facility]. cp 08:36 Eduard Valencia MD is Attending Physician. cp 08:54 Triage completed. iw 08:55 Arm band placed on. iw 08:56 Maggy Castelan, RICHY is Primary Nurse. aa5 09:10 Patient has correct armband on for positive identification. Bed in low position. Call aa5 light in reach. Side rails up X2. Pulse ox on. NIBP on. 09:17 Initial lab(s) drawn, by me, sent to lab. Inserted saline lock: 20 gauge in right aa5 antecubital area, using aseptic technique. Blood collected. 09:20 COVID swab sent to lab. Flu and/or RSV swab sent to lab. aa5 09:47 XRAY Chest (1 view) In Process Unspecified. EDMS 12:38 No provider procedures requiring assistance completed. IV discontinued, intact, aa5 bleeding controlled, No redness/swelling at site. Pressure dressing applied. Administered Medications: 11:08 Drug: bebtelovimab 1 per protocol Route: IV; Rate: calculated rate; Site: right aa5 antecubital; 11:08 Follow up: IV Status: Completed infusion aa5 11:45 Follow up: Response: No adverse reaction aa5 Medication: 12:38 VIS not applicable for this client. aa5 Outcome: 11:47 Discharge ordered by . ivonne 12:38 Discharged to home ambulatory. aa5 12:38 Condition: stable 12:38 Discharge instructions given to patient, Instructed on discharge instructions, follow up and referral plans. medication usage, Demonstrated understanding of instructions, follow-up care, medications, Prescriptions given X 1. 12:41 Patient left the ED. aa5 Signatures: Dispatcher [employer] EDMI AlmanzarMarie mr Lianne Duque RN RN iw Maggy Castelan RN RN aa5 Víctor Quintero PA PA cp
--- NOTE | 2022-03-19 11:47 | EDPHYS ---
Physician Documentation [facility] Name: Isela Perez Age: 71 yrs Sex: Female : 1950 Arrival Date: 03/19/2022 Time: 08:36 Bed 7 Private MD: Juan C Correa C ED Physician Eduard Valencia HPI: 03/19 09:15 This 71 yrs old Female presents to ER via Ambulatory with complaints of Covid+, cp Shortness Of Breath, Congestion. 09:15 The patient or guardian reports cough, that is intermittent, sneezing, chest cp congestion. Onset: The symptoms/episode began/occurred 3 day(s) ago. 09:15 Associated signs and symptoms: Pertinent negatives: chest pain, fever, vomiting, cp abdominal pain. Historical: - Allergies: 08:54 Codeine; iw - PMHx: 08:54 Hypertensive disorder; iw - PSHx: 08:54 Tonsillectomy; hysterectomy; iw 08:55 brain surgery; iw ROS: 09:20 Constitutional: Negative for body aches, fever, poor PO intake. cp 09:20 Eyes: Negative for injury, pain, redness, and discharge. cp 09:20 ENT: Negative for drainage from ear(s), ear pain, sore throat, difficulty swallowing, difficulty handling secretions. 09:20 Neck: Negative for pain with movement, pain at rest, stiffness. 09:20 Cardiovascular: Negative for chest pain, edema, palpitations. 09:20 Respiratory: Positive for cough, with no reported sputum, shortness of breath, on exertion. Negative for wheezing. 09:20 Abdomen/GI: Negative for abdominal pain, nausea, vomiting, and diarrhea. 09:20 Back: Negative for pain at rest, pain with movement. 09:20 Neuro: Negative for altered mental status, dizziness, headache, syncope, weakness. 09:20 All other systems are negative. Exam: 09:25 Constitutional: The patient appears in no acute distress, alert, awake, cp non-diaphoretic, non-toxic, well developed, well nourished. 09:25 Head/Face: Normocephalic, atraumatic. cp 09:25 Eyes: Periorbital structures: appear normal, Conjunctiva: normal, no exudate, no injection, Sclera: no appreciated abnormality, Lids and lashes: appear normal, bilaterally. 09:25 ENT: External ear(s): are unremarkable, Ear canal(s): are normal, clear, TM's: dullness, bilaterally, Nose: is normal, Mouth: Lips: moist, Oral mucosa: pink and intact, moist, Posterior pharynx: Airway: no evidence of obstruction, patent, Tonsils: are normal in appearance, swelling, is not appreciated, erythema, is not appreciated, exudate, is not appreciated. 09:25 Neck: ROM/movement: is normal, is supple, without pain, no range of motions limitations, Lymph nodes: no appreciated lymphadenopathy. 09:25 Chest/axilla: Inspection: normal, Palpation: is normal, no crepitus, no tenderness. 09:25 Cardiovascular: Rate: normal, Rhythm: regular, Edema: is not appreciated, JVD: is not appreciated. 09:25 Respiratory: the patient does not display signs of respiratory distress, Respirations: normal, no use of accessory muscles, no retractions, labored breathing, is not present, Breath sounds: are clear throughout, no decreased breath sounds, no stridor, no wheezing. 09:25 Abdomen/GI: Exam negative for discomfort, distension, guarding, Inspection: abdomen appears normal. 09:25 Back: pain, is absent, ROM is normal. 09:25 Neuro: Orientation: to person, place \\T\\ time. Mentation: is normal. Vital Signs: 08:52 BP 157 / 95; Pulse 65; Resp 20 S; Temp 98.2; Pulse Ox 100% on R/A; iw 10:30 BP 121 / 88; Pulse 56; Resp 16 S; Pulse Ox 96% on R/A; aa5 11:50 BP 144 / 60; Pulse 56; Resp 14 S; Temp 98.0(TE); Pulse Ox 99% on R/A; aa5 12:30 BP 150 / 62; Pulse 58; Resp 18 S; Pulse Ox 99% on R/A; aa5 MDM: 08:58 Patient medically screened. cp 10:31 Data reviewed: vital signs, nurses notes, lab test result(s), radiologic studies, plain cp films. 10:31 Test interpretation: by ED physician or midlevel provider: plain radiologic studies. cp 11:45 ED course: VSS. Patient appears nontoxic and no signs of respiratory distress. Will cp discharge to home for continued monitoring. 03/19 09:06 Order name: CBC with Diff; Complete Time: 10:19 cp 03/19 10:19 Interpretation: Normal except: RBC 3.83; HGB 11.9; HCT 35.2; MPV 7.5. cp 03/19 09:06 Order name: BMP; Complete Time: 10:19 cp 03/19 10:20 Interpretation: Normal except: CL 109; GFR 78. cp 03/19 09:06 Order name: XRAY Chest (1 view); Complete Time: 10:31 cp 03/19 09:06 Order name: Influenza Screen (a \\T\\ B); Complete Time: 10:31 cp 03/19 09:06 Order name: COVID-19 SARS RT PCR (Document "Date of Onset" if Symptomatic); Complete cp Time: :03/19 10:31 Interpretation: Reviewed. cp 03/19 09:06 Order name: IV; Complete Time: 09:24 cp Administered Medications: 11:08 Drug: bebtelovimab 1 per protocol Route: IV; Rate: calculated rate; Site: right aa5 antecubital; 11:08 Follow up: IV Status: Completed infusion aa5 11:45 Follow up: Response: No adverse reaction aa5 Disposition: 18:27 Co-signature as Attending Physician, Eduard Valencia MD. rn Disposition Summary: 03/19/22 11:47 Discharge Ordered Location: Home cp Problem: new cp Symptoms: have improved cp Condition: Stable cp Diagnosis - SARS-associated coronavirus as the cause of diseases classified elsewhere cp Followup: cp - With: Private Physician - When: 1 - 2 days - Reason: Worsening of condition Discharge Instructions: - Discharge Summary Sheet cp - Aspirin and Your Heart cp - COVID-19 cp - Things to Know about the COVID-19 Pandemic - [facility] cp - 10 Things You Can Do to Manage Your COVID-19 Symptoms at Home - [facility] cp - COVID-19: Quarantine vs. Isolation - [facility] cp - Prevent the Spread of COVID-19 if You Are Sick - [facility] cp Forms: - Medication Reconciliation Form cp - Thank You Letter cp - Antibiotic Education cp - Prescription Opioid Use cp Prescriptions: - Bromfed DM 2-30-10 mg/5 mL Oral syrup - take 10 milliliter by ORAL route every 6 hours; 180 milliliter; Refills: 0, cp Product Selection Permitted Signatures: Dispatcher [employer] Lianne Wise RN RN iw Nieto, Roman, MD MD rn Calderon, Audri, RN RN aa5 Víctor Quintero PA PA cp Corrections: (The following items were deleted from the chart) 03/20 09:07 09:05 The patient or guardian reports cough, that is intermittent, sneezing, chest cp congestion, cp : 09:05 Onset: The symptoms/episode began/occurred 3 day(s) ago, cp cp
[2022-03-19 12:52] VITALS: BP 144/60; TEMP 98; O2SAT 99
== END 2022-03-19 12:41 | disposition home or self-care (01) ==
LOC: ER 08:30
DX: U07.1 COVID-19 (principal); I10 Essential (primary) hypertension; Z88.5 Allergy status to narcotic agent
CPT/HCPCS: 85025; 80048; 36415; 87804 ×2; 71045; 99284; U0003